=== PATIENT | male | born 1950 | race Caucasian/White ===

== ENCOUNTER 2017-12-26 07:19 | Inpatient (IN) ==
--- NOTE | 2017-12-25 22:27 | Discharge Summary ---
<Conchis Dockery E - Last Filed: 12/25/17 22:24> Date of Encounter: 12/25/17 - Discharge Diagnosis (1) Osteoarthritis of right hip Priority: Primary Status: Chronic Qualifiers: Osteoarthritis type: unspecified Qualified Code(s): M16.11 - Unilateral primary osteoarthritis, right hip (2) HTN (hypertension) Priority: Secondary Status: Chronic Qualifiers: Hypertension type: unspecified Qualified Code(s): I10 - Essential (primary ) hypertension (3) HLD (hyperlipidemia) Priority: Secondary Status: Chronic Qualifiers: Hyperlipidemia type: unspecified Qualified Code(s): E78.5 - Hyperlipidemia , unspecified (4) Obesity Priority: Secondary Status: Chronic Qualifiers: Obesity type: unspecified obesity type Obesity classification: unspecified obesity classification Serious obesity comorbidity presence: unspecified whether serious comorbidity present Qualified Code(s): E66.9 - Obesity, unspecified (5) Irritant dermatitis Priority: Secondary Status: Chronic (6) CAD (coronary artery disease) Priority: Secondary Status: Chronic Qualifiers: Coronary Disease-Associated Artery/Lesion type: unspecified vessel or lesion type [place] vs. 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 [Rx] OxyCODONE Immed Rel [Roxicodone 5 MG] 5 mg PO Q6HR PRN 7 Days #28 tablet [Rx] Aspirin [Lo-Dose Aspirin EC] 81 mg PO DAILY 12/26/17 [History] Atorvastatin Calcium [Lipitor] 20 mg PO HS 12/26/17 [History] Clopidogrel [Plavix] 75 mg PO DAILY 12/26/17 [History] Metoprolol Succinate [Toprol Xl] 25 mg PO DAILY 12/26/17 [History] Multivitamin [One Daily Essential] 1 tab PO DAILY 12/26/17 [History] Valsartan/Hydrochlorothiazide [Diovan Hct 160-12.5 mg Tab] 1 tab PO DAILY [History] Vitamin B Complex [B Complex] 1 tab PO HS 12/26/17 [History] Allergies/Adverse Reactions: 3 Allergy/AdvReac Type Severity Reaction Status Date / Time No Known Allergies Allergy Verified 12/26/17 08:10 Primary care physician: Heron Jiménez - Patient Status Disposition: Home Health Service Condition: Good - Discharge Instructions Follow Up With: Conchis Dockery PAC [Physician In Shop Service Technician] - 01/04/18 9:00 am (& also, , January 10, 2018 at 10:45 AM) Frederick Martínez MD [Partnered Physician] - 01/23/18 5:40 pm Heron Jiménez DO [Primary Care Provider] - Pebbles Rod MD [Partnered Physician] - 04/11/18 8:00 am Additional Instructions: Discharge Instructions: Total Hip Replacement Please call [facility] ([phone]), your Primary Care Physician, or report to the Emergency Room if you have any of the following symptoms: Nausea, vomiting, fever greater that 101.5, swelling, chest pain, shortness of breath, increased pain/redness/drainage/odor for your incision site, numbness/ tingling, or any other concerning symptoms. ACTIVITY:Weight-bearing as tolerated for 8 weeks with hip dislocation precautions that physical therapy taught you. You may progress as tolerated under the guidance of your physical therapist. You do not need to sleep with a pillow between your legs. You can also seep on the operative side or on your stomach. MEDICATIONS: Upon discharge resume your home medications. Take all the medications as prescribed. Take a stool softener if taking narcotic pain medications. Stool softeners are only effective if you drink enough fluids. Drink 6-8 glass of water or fluids a day, unless this is not allowed for another health problem. Despite using stool softeners, if you haven't had a bowel movement in 3 days, please switch to a gentle laxative. Gentle laxatives are sold over the counter. You should have a bowel movement within 24 hours, if not call the office. You will be discharged from the hospital with a prescription for pain medication. You are encouraged to decrease the use of narcotic pain medication as tolerated. Should you require a refill, please call the office. [facility] prescribes narcotic pain medication for only 4-6 weeks after surgery. If you require pain medication beyond this time period, you may be referred to your Primary Care Physician or to the Pain Clinic for further evaluation. Plan ahead for refills on pain medication as many narcotics either need to be picked up at the office or mailed. It is best to call 48-72 hours in advance of needing a prescription refill so you don't run out of medication. To help control the post-operative pain, you may take NSAIDs (Aleve,Advil, Motrin, ibuprofen, naprosyn) or Tylenol as prescribed on the bottle in addition to the pain medication. ANTICOAGULATION (blood thinners): Continue your Aspirin, Lovenox or Coumadin as prescribed to help prevent a blood clot in the leg or in the lungs. As long as your incision remains dry and you tolerate the NSAIDs (Aleve, Advil, Motrin, Ibuprofen, Naprosyn), it is OK to use the NSAIDS while you are taking your anticoagulation medication. Should your incision start to drain, stop the NSAID and contact our office. Common symptoms of blood clot in the legs include: localized pain, swelling, calf tenderness, redness or discoloration of the skin. Blood clot in the lung symptoms include: shortness of breath, rapid pulse, sweating, and chest pain that worsens with deep breathing, coughing up blood, lightheadedness, feelings of anxiety. If you experience any of these symptoms notify your physician immediately, go to the emergency room, or if having trouble breathing, call 911. WOUND CARE: Leave the dressing on for 7 to 10days. You may change the dressing if it is saturated greater than 50%. Do not get the dressing wet at anytime. Wash your hands with antibacterial soap, rinse and dry prior to any wound care. If you have andrew the visiting nurse or rehab facility can remove the stapes 10-14 days after surgery and place steri-strips across the wound. Leave the steri-strips in place until they fall off on their own. You may let water from the shower run on top of the steri-strips. If you do not have a visiting nurse or rehab facility, you will need to return to the office at 10-14 days for the andrew to be removed. If you have itching or redness around the dressing call the office. FOLLOW-UP: Please follow up with your surgeon in the orthopedic clinic in 6 weeks from the day of surgery. If you have andrew that need to be removed, you will need to come back to the office in 10-14 days from the day of surgery. - Hospital Course Hospital course: Mr. Larson is a 67 year old male - Time Spent with Patient Total time spent providing and/or coordinating discharge services: <Frederick Martínez - Last Filed: 12/29/17 06:43> Date of Encounter: 12/29/17 Time of Encounter: 06:42 - Discharge Diagnosis (1) Osteoarthritis of right hip Priority: Primary Status: Chronic Qualifiers: Osteoarthritis type: unspecified Qualified Code(s): M16.11 - Unilateral primary osteoarthritis, right hip (2) HTN (hypertension) Priority: Secondary Status: Chronic Qualifiers: Hypertension type: unspecified Qualified Code(s): I10 - Essential (primary ) hypertension (3) HLD (hyperlipidemia) Priority: Secondary Status: Chronic Qualifiers: Hyperlipidemia type: unspecified Qualified Code(s): E78.5 - Hyperlipidemia , unspecified (4) Irritant dermatitis Priority: Secondary Status: Chronic (5) CAD (coronary artery disease) Priority: Secondary Status: Chronic Qualifiers: Coronary Disease-Associated Artery/Lesion type: unspecified vessel or lesion type [place] vs. 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 Larson is a 67 year old male Status post total hip replacement The patient had an uneventful postoperative course. They received antibiotics and physical therapy and were discharged in stable condition. There will follow -up in the office in 2 weeks. - Time Spent with Patient Total time spent providing and/or coordinating discharge services:
[2017-12-26] MEDS ORDERED: Ethanol\\Acetic Acid\\Na Ace\\Ben 1,000 ML IRRIG.SOLN IR ONE (07:28)
[2017-12-26] MEDS ORDERED: CeFAZolin Syr 2,000MG/20 ML 2,000 MG/20 ML SYRINGE IVPB ONE (07:31)
[2017-12-26] MEDS ORDERED: Ondansetron 4 MG/2 ML VIAL ONE (07:40)
[2017-12-26] MEDS ORDERED: Lidocaine -MPF 2% 2 ML VIAL ONE (07:40)
[2017-12-26] MEDS ORDERED: *HR* Midazolam HCl 2 MG/2 ML VIAL ONE (07:40)
[2017-12-26] MEDS ORDERED: Plasma-Lyte A (PH 7.4) 1,000 ML IVC SCH (07:45)
[2017-12-26] MEDS ORDERED: *HR* Morphine Sulfate/PF 10 MG/10 ML AMPUL ONE (07:51)
--- NOTE | 2017-12-26 07:53 | History & Physical Report ---
Date of Encounter: 12/26/17 Time of Encounter: 07:52 24 Hour HP Update - Instructions Instructions: If the History and Physical is less than 30 days old and was completed prior to A.M. admission and or procedure and has NOT been updated on calendar day of procedure please complete this update prior to performing procedure. - Update Patient reports changes in Medical Condition: No Changes in examination, assessment, or condition: No Changes in Medication: No Preop tests/diagnostics Reviewed: Yes Surgery Remains Indicated: Yes Consent for Planned Operative Procedure(s) Verified: Yes - Pre-Operative Checklist Preoperative Checklist Indicated: No Prophylactic Antibiotic Ordered: Yes Is VTE Prophylaxis Indicated?: Yes
[2017-12-26] MEDS ORDERED: Famotidine 20 MG/2 ML VIAL IVP ONE (07:58)
[2017-12-26] MEDS ORDERED: Pregabalin 75 MG CAPSULE PO ONE (07:59)
--- NOTE | 2017-12-26 08:02 | Anesthesia Evaluation PreOp ---
Date of Encounter: 12/26/17 Time of Encounter: 08:00 - Past History Planned Operation: Rt THR Cardiac History: MA (2009), HTN, Hyperlipidemia, Cardiac Stent (Stent X4 on Plavix and beta gisell) Pulmonary History: Denies Any Significant HX METAL WORK DUCT INSTALLER History: Denies Any Significant HX Other Medical History: Denies Any Significant HX Anesthesia History: No Prior Anesthetic Complications Alcohol Use: occasionally Drug use: none Medications and Allergies Aspirin Enteric Coated [Aspirin EC] 325 mg PO DAILY 21 Days #21 tablet. [Rx] OxyCODONE Immed Rel [Roxicodone 5 MG] 5 mg PO Q6HR PRN 7 Days #28 tablet [Rx] 3 Allergy/AdvReac Type Severity Reaction Status Date / Time No Known Allergies Allergy Unverified 11/16/17 10:03 - Meds/Allergy Pre-op Review Medications Reviewed: Yes Allergies Reviewed: Yes Beta Blockers on Current Med List: Yes (Took Metoprolol today 0600) Anesthesia Results - Labs Laboratory Tests 12/18/17 12/18/17 12/18/17 12:44 12:44 12:44 Hgb 13.5 Hct 41.3 Plt Count 242 PT 11.6 INR 1.1 APTT 26.8 Sodium 142 Potassium 3.9 BUN 16 Creatinine 0.89 - Imaging EKG: report reviewed (SR) Anesthesia Exam O2 Sat Height 1.91 m Height 1.91 m Weight 104.78 kg Weight 104.78 kg O2 Sat by Pulse Oximetry 96 Vital Signs Temp Pulse Resp BP Pulse Ox 98.0 F 64 18 132/71 96 12/26/17 07:37 12/26/17 07:37 12/26/17 07:37 12/26/17 07:37 12/26/17 07:37 Height: 6'3 Weight: 231 lbs NPO (# of Hours): MN Pain Scale: 0 - HEENT Pupil (Motor): Pupils equal, EOMI Mallampati: II Teeth: Normal Oral Opening: Greater than 3 - METAL WORK DUCT INSTALLER LOC: Oriented METAL WORK DUCT INSTALLER Motor: Normal RUE, Normal LUE, Normal RLE, Normal LLE, Normal Face METAL WORK DUCT INSTALLER Sensory: Normal: RUE, LUE, RLE, LLE, Face - Cardiac Rhythm: Regular Murmur: None JVD: No Carotid Bruit: No - Pulmonary Breath Sounds: bilateral Clear Respiratory Effort: Symmetrical Anesthesia Assess/Plan ASA Score: 3 (CAD HTN) Modified Jeff Scale for Level of Consciousness: Cooperative, oriented, and tranquil Anesthetic Plan: General, Regional Monitoring Plan: Standard Monitors Recovery Plan: PACU (Discussed GA with Fascia Iliaca Block, agrees to proceed)
[2017-12-26] MEDS ORDERED: Bupivacaine/Clonidine Syringe 1 EACH SYRINGE ONE (08:03)
[2017-12-26] MEDS ORDERED: Lidocaine -MPF 4% 5 ML AMPUL ONE (08:10)
[2017-12-26] MEDS ORDERED: *HR* Propofol 200 MG/20 ML VIAL IVP ONE (08:10)
[2017-12-26] MEDS ORDERED: Ketamine *HR* 500 MG/10 ML MDV ONE (08:11)
[2017-12-26] MEDS ORDERED: *HR* FentaNYL (PF) 100 MCG/2 ML VIAL ONE ×2 (08:32→10:20)
[2017-12-26] MEDS ORDERED: *HR* OxyCODONE Immed Rel 5 MG TABLET PO PRN (09:15)
[2017-12-26] MEDS ORDERED: *HR* Promethazine 25 MG/ML VIAL IVP PRN (09:15)
[2017-12-26] MEDS ORDERED: Dexamethasone 4 MG/ML VIAL ONE (09:39)
--- NOTE | 2017-12-26 09:52 | Anesthesia Procedures ---
Date of Encounter: 12/26/17 Time of Encounter: 08:00 Procedures: Anesthesia - Nerve Block Procedure Date: 12/26/17 Time: 09:00 Pre-op Diagnosis: Rt Hip Osteoarthritus Surgical Procedure: RT THR Checklist: Correct Patient Identifier Correct side: Right Blood Thinner: Yes Monitor Applied: EKG, BP, Pulse Oximetry Supplemental Oxygen via Nasal Cannula (L/min): 2 Sedation: Versed (mg): 2 Sedation: Fentanyl (mcg): 100 Indication: Post Op Analgesia Pre-op Neuro Deficits: No Block Type: Other (Fascia Iliaca Block) Catheter placed: No Depth at skin (cm): 2 Sterile Technique: Yes Ultrasound used: Yes Anatomy identified: Yes Visual spread of Local: Yes Neuro Stimulation: No Nerve Stimulator Range: >0.4 - 0.6 mA Blood on Needle Aspiration: No Smooth Injection of Local: Yes Pain with Injection of Local: No Prep: Chlorhexadine Needle: 22 x 50 mm Stimuplex Local: 0.25% Bupivicaine w/Clonidine 20 mcg/cc Volume (cc): 60 Number of Attempts: 1 Complications: None/effective block Vitals: Vital Signs/O2 Sat/Glucose, Most Current Temp Pulse Resp BP Pulse Ox 12/26/17 09:20 60 18 120/80 99 12/26/17 09:05 57 16 101/64 99 12/26/17 08:51 56 18 119/77 96 12/26/17 07:37 98.0 F 64 18 132/71 96
[2017-12-26] MEDS ORDERED: EPHEDrine 50 MG/ML VIAL ONE (10:01)
--- NOTE | 2017-12-26 10:51 | Orthopedic Operative Note ---
Date of procedure: 12/26/17 Pre-op diagnosis: Right hip arthritis Post-op diagnosis: same Procedure: Procedure: Right Total Hip Replacment robotic-assisted Estimated blood loss: 200 cc Hardware: Metal and polyethylene replacement. [place] DM Cup: cup 62 Femoral size 11 stem Head: 0 head with Merna Procedural Notes: Grade 4 arthritic changes femoral head acetabular socket, procedure performed with robotic assistance. 4 mm shorter operative leg based on CAT scan Operative procedure: The patient was brought to the operating room and placed on the operating room table. After general anesthesia was administered the patient was placed in the lateral decubitus position with the operative leg up. All pressure points were padded appropriately and the head was stabilized in the neutral position. The operative extremity was prepped and draped in the sterile surgical fashion patient received IV antibiotic prior to skin incision. 3 Steinmann pins were placed in the iliac crest 3 cm proximal to the anterior superior iliac spine this was for the robotic-assisted sensor. This was done through a small 2 cm incision. A standard posterior approach is made to the operative hip, the incision was made through the skin and subcutaneous tissue hemostasis was obtained with Bovie cautery. Using careful sharp dissection the fascia was identified and incised exposing the external rotators. The femoral checkpoint was placed leg length was measured at this time utilizing robotic assistance. The external rotators were released off the greater trochanter and tagged with # 2 FiberWire suture. The capsule was T'd open and the hip was brought into internal rotation. Patient noted to have grade 4 arthritic changes femoral head. The femoral neck cut was made at the appropriate level roughly 12 mm proximal to the lesser trochanter aced on preoperative templating. An anterior capsulotomy was performed for the anterior retractor. Soft tissues removed from the acetabulum. Patient noted to have grade 4 arthritic changes acetabulum. The acetabulum checkpoint was placed confirmed. The acetabulum was then mapped with robotic assistance. Based on the preoperative plan the acetabulum was reamed in one step with a 61 reamer. The 62 acetabulum was impacted with robotic assistance and 40 degrees of abduction and 11 degrees of anteversion. The hip was brought back in to internal rotation and prepared with the box truck washer followed by the canal finder followed by the reaming process to a size 11 /12 broaching process in 20 degrees anteversion. It was broached up to the appropriate size 11. Trial reduction revealed leg lengths close to normal. The femoral implant was impacted in place in 20 degrees of anteversion. Trial reduction found the hip to be stable with 0 head and Merna. The trials were removed and the real implants were impacted in place. The hip was reduced, patient had robotic confirmed leg length of 5 mm longer than the contralateral side. The hip had excellent stability with forward flexion to 90 degrees adduction of 30 degrees and internal rotation of 60 degrees. The hip had no shuck. The hips after 2 minutes with a antibacterial solution. It was irrigated out with 2 L of pulse irrigation. The checkpoints were removed, Steinmann pins were removed. The hip was closed by the PA. The deep tissue was irrigated and closed deep with #1 PDS suture superficially with 0 PDS suture and skin was closed with Dermabond and zip tie. The patient was placed in a sterile dressing and abduction pillow. The patient was extubated and transferred to the recovery room in stable condition. Anesthesia: PAPI Surgeon: Frederick Martínez Was there an golf course assistant present: No Estimated blood loss (cc): 200 Condition: stable Disposition: PACU
[2017-12-26] MEDS ORDERED: *HR* OxyCODONE/APAP 5/325 TABLET PO PRN (10:54)
[2017-12-26] MEDS ORDERED: Naloxone 0.4 MG/ML INJ IVP PRN ×2 (10:54→12:03)
[2017-12-26] MEDS: MORPHINE SUL Oral CONC 10 MG/0.5 ML ORAL.SYG SL PRN ×2 (11:31→11:41)
[2017-12-26 11:47] LABS: Hemoglobin 11.5 g/dL (12.9-16.9)
--- NOTE | 2017-12-26 11:51 | Anesthesia Evaluation Post Op ---
Date of Encounter: 12/26/17 Time of Encounter: 12:00 - Vital Signs Vital Signs: Vital Signs/O2 Sat/Glucose, Most Current Temp Pulse Resp BP Pulse Ox 12/26/17 11:39 55 14 104/75 99 12/26/17 11:29 60 14 138/41 100 12/26/17 11:19 98.0 F 70 15 124/80 100 12/26/17 09:20 60 18 120/80 99 12/26/17 09:05 57 16 101/64 99 12/26/17 08:51 56 18 119/77 96 - Lungs Lungs: Clear Ascult./Percussion - Airway Airway: Non-obstructed - Cardiovascular Regular Rate - Mental Status Mental Status: Alert & Oriented, Answers Appropriately - Pain Pain Scale: 1 - Nausea Vomiting Nausea Vomiting: Not Present - Hydration Hydration: Ice chips - Discharge PostOp Status: Transfer Patient to floor
[2017-12-26] MEDS ORDERED: Ringers Solution, Lactated 1,000 ML ONE (11:58)
[2017-12-26] MEDS ORDERED: MOM Conc 10 ML UD.LIQ PO PRN (12:03)
[2017-12-26] MEDS ORDERED: Sennosides 8.6 MG TABLET PO PRN (12:03)
[2017-12-26] MEDS ORDERED: Temazepam 15 MG CAPSULE PO PRN (12:03)
[2017-12-26] MEDS ORDERED: Ringers Solution, Lactated 1,000 ML IVC SCH (12:03)
[2017-12-26] MEDS ORDERED: Ondansetron 4 MG/2 ML VIAL IVP PRN (12:03)
[2017-12-26] MEDS: Ascorbic Acid 500 MG TABLET PO SCH (17:06)
[2017-12-26] MEDS: CeFAZolin Premix DUPLEX 2,000 MG/50 ML BAG IVPB SCH (17:07)
[2017-12-26] MEDS: *HR* OxyCODONE/APAP 5/325 TABLET PO PRN (17:30)
[2017-12-26] MEDS ORDERED: *HR* Enoxaparin 30 MG/0.3 ML SYRINGE SQ SCH ×2 (18:00)
[2017-12-26] MEDS: Vitamin B Complex/Vit C/Vit E 1 EACH TABLET PO SCH (20:33)
[2017-12-27] MEDS: CeFAZolin Premix DUPLEX 2,000 MG/50 ML BAG IVPB SCH (00:14)
[2017-12-27 05:22] LABS: Hematocrit 31.5 % (37.5-50.1); Hemoglobin 10.4 g/dL (12.9-16.9)
[2017-12-27 06:27] LABS: BUN/Creatinine Ratio 25 (6-26); Blood Urea Nitrogen 24 mg/dL (8-23); Carbon Dioxide 28 mEq/L (23-29); Chloride 102 mEq/L (98-107); Glucose 124 mg/dL (70-105); Osmolality,Calculated 289 (280-300); Potassium 4.3 mEq/L (3.5-5.1); Sodium 137 mEq/L (136-145); eGFR For African Americans > 60 (> 60); eGFR For Non-African Americans > 60 (> 60)
--- NOTE | 2017-12-27 08:06 | Orthopedics Progress Note ---
Date of Encounter: 12/27/17 Time of Encounter: 08:06 - Assessment and Plan (1) Osteoarthritis of right hip Current Visit: No Status: Chronic Qualifiers: Osteoarthritis type: unspecified Qualified Code(s): M16.11 - Unilateral primary osteoarthritis, right hip (2) HTN (hypertension) Current Visit: No Status: Chronic Qualifiers: Hypertension type: unspecified Qualified Code(s): I10 - Essential (primary ) hypertension (3) HLD (hyperlipidemia) Current Visit: No Status: Chronic Qualifiers: Hyperlipidemia type: unspecified Qualified Code(s): E78.5 - Hyperlipidemia , unspecified (4) Irritant dermatitis Current Visit: No Status: Chronic (5) CAD (coronary artery disease) Current Visit: No Status: Chronic Qualifiers: Coronary Disease-Associated Artery/Lesion type: unspecified vessel or lesion type [place] vs. 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 Afebrile vital signs stable. Operative extremity: Neurovascularly intact Dressing clean dry and intact Calves nontender Assessment and plan: Continue with postoperative care Hematocrit 31 Objective Vital signs: Vital Signs Temp Pulse Resp BP Pulse Ox 12/27/17 07:03 98.1 F 73 14 103/59 95 12/27/17 03:51 98.1 F 68 17 110/66 99 12/27/17 00:09 98.0 F 72 17 101/55 98 12/26/17 20:10 98.1 F 70 18 91/52 98 12/26/17 15:32 97.6 F 65 15 96/62 96 12/26/17 14:56 97.7 F 60 16 89/58 96 12/26/17 14:20 97.7 F 60 16 94/58 99 12/26/17 13:32 98.6 F 55 91/65 99 12/26/17 13:22 98.6 F 55 15 91/65 99 12/26/17 12:44 97.5 F L 54 14 88/57 98 12/26/17 12:15 97.4 F L 53 15 94/62 99 12/26/17 12:01 56 14 99 12/26/17 11:49 98.2 F 54 16 101/66 99 12/26/17 11:39 55 14 104/75 99 12/26/17 11:29 60 14 138/41 100 12/26/17 11:19 98.0 F 70 15 124/80 100 12/26/17 09:20 60 18 120/80 99 12/26/17 09:05 57 16 101/64 99 12/26/17 08:51 56 18 119/77 96 Intake and Output 12/26/17 12/27/17 12/27/17 23:59 07:59 15:59 Intake Total 750 / 750 Output Total 1250 / 1250 Balance 750 / 750 -1250 / -1250 Intake: IV Fluids 50 / 50 Ancef Premix DUPLEX 2,000 mg In 50 / 50 50 ml @ 100 mls/hr IVPB Q8HR MARINO Rx#:[id number] Oral 700 / 700 Output: Straight Cath 1250 / 1250 Other: # Voids 1 Weight 113.6 kg Patient Weight 12/27/17 23:59 Weight 113.6 kg - Labs CBC & BMP: 12/27/17 04:32 12/27/17 04:32 Labs: Abnormal lab results Hgb 10.4 g/dL (12.9-16.9) L 12/27/17 04:32 Hct 31.5 % (37.5-50.1) L 12/27/17 04:32 BUN 24 mg/dL (8-23) H 12/27/17 04:32 Glucose 124 mg/dL (70-105) H 12/27/17 04:32 - VTE Documentation of Mechanical Device: Venous foot pump, device Consult Discharge Plan - Plan Referrals: Heron Jiménez DO [Primary Care Provider] -
[2017-12-27] MEDS ORDERED: NON-FORMULARY MEDICATION 1 EACH EACH (Valsartan/Hydrochlorothiazide [Diovan Hct 160-12.5 M PO SCH (09:00)
[2017-12-27] MEDS: Aspirin Enteric Coated 81 MG Tablet PO SCH (09:08)
[2017-12-27] MEDS: Ascorbic Acid 500 MG TABLET PO SCH ×2 (09:08→16:46)
[2017-12-27] MEDS: Multivit/Ca/Min/Fe/FA 1 TAB TABLET PO SCH ×2 (09:08→09:09)
[2017-12-27] MEDS: hydroCHLOROthiazide 25 MG TABLET PO SCH (09:09)
[2017-12-27] MEDS: Metoprolol XL (24 HR) Succ 25 MG TAB.ER.24H PO SCH (09:10)
[2017-12-27] MEDS: Valsartan 160 MG TABLET PO SCH (09:10)
[2017-12-27] MEDS: *HR* OxyCODONE/APAP 5/325 TABLET PO PRN ×2 (09:21→18:57)
--- NOTE | 2017-12-27 18:36 | Event Note ---
Date of Encounter: 12/27/17 Time of Encounter: 13:30 PCR- POD#1 R THR robotic 12/26/17 Mauricio PCR - Patient in restroom - had accident. Patient not seen during rounds. Nursing and RELAST[facility] staff notified of patient's need for help.
[2017-12-27] MEDS: Vitamin B Complex/Vit C/Vit E 1 EACH TABLET PO SCH (20:02)
[2017-12-28] MEDS: *HR* OxyCODONE/APAP 5/325 TABLET PO PRN (00:39)
[2017-12-28 03:54] LABS: Hematocrit 26.6 % (37.5-50.1)
[2017-12-28 04:20] LABS: BUN/Creatinine Ratio 28 (6-26); Blood Urea Nitrogen 24 mg/dL (8-23); Calcium 8.9 mg/dL (8.6-10.3); Carbon Dioxide 29 mEq/L (23-29); Chloride 101 mEq/L (98-107); Glucose 120 mg/dL (70-105); Osmolality,Calculated 287 (280-300); Potassium 4.1 mEq/L (3.5-5.1); Sodium 136 mEq/L (136-145); eGFR For African Americans > 60 (> 60); eGFR For Non-African Americans > 60 (> 60)
[2017-12-28] MEDS ORDERED: *HR* OxyCODONE Immed Rel 5 MG TABLET PO PRN (06:40)
[2017-12-28] MEDS: Valsartan 160 MG TABLET PO SCH (07:27)
[2017-12-28] MEDS: *HR* OxyCODONE Immed Rel 5 MG TABLET PO PRN ×4 (07:28→20:03)
[2017-12-28] MEDS: hydroCHLOROthiazide 25 MG TABLET PO SCH (07:28)
[2017-12-28] MEDS: Aspirin Enteric Coated 81 MG Tablet PO SCH (07:28)
[2017-12-28] MEDS: Metoprolol XL (24 HR) Succ 25 MG TAB.ER.24H PO SCH (07:28)
[2017-12-28] MEDS: Ascorbic Acid 500 MG TABLET PO SCH ×2 (07:29→15:49)
[2017-12-28] MEDS: Multivit/Ca/Min/Fe/FA 1 TAB TABLET PO SCH ×2 (07:29)
--- NOTE | 2017-12-28 08:01 | Orthopedics Progress Note ---
Date of Encounter: 12/28/17 Time of Encounter: 08:00 - Assessment and Plan (1) Osteoarthritis of right hip Current Visit: No Status: Chronic Qualifiers: Osteoarthritis type: unspecified Qualified Code(s): M16.11 - Unilateral primary osteoarthritis, right hip (2) HTN (hypertension) Current Visit: No Status: Chronic Qualifiers: Hypertension type: unspecified Qualified Code(s): I10 - Essential (primary ) hypertension (3) HLD (hyperlipidemia) Current Visit: No Status: Chronic Qualifiers: Hyperlipidemia type: unspecified Qualified Code(s): E78.5 - Hyperlipidemia , unspecified (4) Irritant dermatitis Current Visit: No Status: Chronic (5) CAD (coronary artery disease) Current Visit: No Status: Chronic Qualifiers: Coronary Disease-Associated Artery/Lesion type: unspecified vessel or lesion type [place] vs. 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 Afebrile vital signs stable. Operative extremity: Neurovascularly intact Dressing clean dry and intact Calves nontender Assessment and plan: Continue with postoperative care hb 9.0 Objective Vital signs: Vital Signs Temp Pulse Resp BP Pulse Ox 12/28/17 07:05 98.9 F 82 16 106/67 95 12/28/17 00:10 98.6 F 80 14 119/75 93 12/27/17 18:50 99.3 F 86 16 106/65 93 12/27/17 17:05 98.3 F 85 14 110/58 96 12/27/17 11:30 98.8 F 71 15 111/65 94 Intake and Output 12/27/17 12/28/17 12/28/17 23:59 07:59 15:59 Intake Total 290 / 290 Output Total 250 / 250 Balance 290 / 290 -250 / -250 Intake: Oral 290 / 290 Output: Urine 250 / 250 Other: Meal Dinner Percent of Meal Consumed 70% - Labs CBC & BMP: 12/28/17 02:43 02/16/18 02:43 Labs: Abnormal lab results Hgb 9.0 g/dL (12.9-16.9) L 12/28/17 02:43 Hct 26.6 % (37.5-50.1) L 12/28/17 02:43 BUN 24 mg/dL (8-23) H 12/28/17 02:43 BUN/Creatinine Ratio 28 (6-26) H 12/28/17 02:43 Glucose 120 mg/dL (70-105) H 12/28/17 02:43 - VTE Documentation of Mechanical Device: Venous foot pump, device Consult Discharge Plan - Plan Referrals: Conchis Dockery PAC [Physician Professional Fighter] - 01/04/18 9:00 am (& also, January at 10:45 AM) Frederick Martínez MD [Partnered Physician] - 01/23/18 5:40 pm Heron Jiménez DO [Primary Care Provider] - Pebbles Rod MD [Partnered Physician] - 04/11/18 8:00 am
--- NOTE | 2017-12-28 16:57 | Event Note ---
Date of Encounter: 12/28/17 Time of Encounter: 12:15 PCR- POD#2 R THR robotic 12/26/17 Mauricio PCR - Patient seen at bedside. Pain control: adequate Participating in PT. All questions and concerns addressed. Educated on use of incentive spirometer, ambulation, and hydration. Patient educated on post-operative restrictions and care. Addressed: see above. D/C plan: home tomorrow with outpatient therapy
[2017-12-28] MEDS: Vitamin B Complex/Vit C/Vit E 1 EACH TABLET PO SCH (20:03)
[2017-12-29] MEDS: *HR* OxyCODONE Immed Rel 5 MG TABLET PO PRN ×3 (01:52→11:40)
--- NOTE | 2017-12-29 06:43 | Orthopedics Progress Note ---
Date of Encounter: 12/29/17 Time of Encounter: 06:43 - Assessment and Plan (1) Osteoarthritis of right hip Current Visit: No Status: Chronic Qualifiers: Osteoarthritis type: unspecified Qualified Code(s): M16.11 - Unilateral primary osteoarthritis, right hip (2) HTN (hypertension) Current Visit: No Status: Chronic Qualifiers: Hypertension type: unspecified Qualified Code(s): I10 - Essential (primary ) hypertension (3) HLD (hyperlipidemia) Current Visit: No Status: Chronic Qualifiers: Hyperlipidemia type: unspecified Qualified Code(s): E78.5 - Hyperlipidemia , unspecified (4) Irritant dermatitis Current Visit: No Status: Chronic (5) CAD (coronary artery disease) Current Visit: No Status: Chronic Qualifiers: Coronary Disease-Associated Artery/Lesion type: unspecified vessel or lesion type [place] vs. 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 Afebrile vital signs stable. Operative extremity: Neurovascularly intact Dressing clean dry and intact Calves nontender Assessment and plan: Continue with postoperative care Discharged today Objective Vital signs: Vital Signs Temp Pulse Resp BP Pulse Ox 12/29/17 04:26 99.2 F 79 15 123/75 97 12/29/17 00:35 98.9 F 78 15 98/60 92 12/28/17 20:48 97.7 F 79 17 118/72 16 12/28/17 20:00 92 12/28/17 16:18 99.7 F H 85 16 107/66 92 12/28/17 11:22 99.0 F 85 16 130/80 99 12/28/17 07:05 98.9 F 82 16 106/67 95 Intake and Output 12/28/17 12/28/17 12/29/17 15:59 23:59 07:59 Intake Total 300 / 300 Output Total 500 / 500 Balance -200 / -200 Intake: Oral 300 / 300 Output: Urine 500 / 500 Other: # Voids 1 - Labs CBC & BMP: 12/28/17 02:43 12/28/17 02:43 Labs: Abnormal lab results Hgb 9.0 g/dL (12.9-16.9) L 12/28/17 02:43 Hct 26.6 % (37.5-50.1) L 12/28/17 02:43 BUN 24 mg/dL (8-23) H 12/28/17 02:43 BUN/Creatinine Ratio 28 (6-26) H 12/28/17 02:43 Glucose 120 mg/dL (70-105) H 12/28/17 02:43 - VTE Documentation of Mechanical Device: Venous foot pump, device Consult Discharge Plan - Plan Additional Instructions: Discharge Instructions: Total Hip Replacement Please call [facility] ([phone]), your Primary Care Physician, or report to the Emergency Room if you have any of the following symptoms: Nausea, vomiting, fever greater that 101.5, swelling, chest pain, shortness of breath, increased pain/redness/drainage/odor for your incision site, numbness/ tingling, or any other concerning symptoms. ACTIVITY:Weight-bearing as tolerated for 8 weeks with hip dislocation precautions that physical therapy taught you. You may progress as tolerated under the guidance of your physical therapist. You do not need to sleep with a pillow between your legs. You can also seep on the operative side or on your stomach. MEDICATIONS: Upon discharge resume your home medications. Take all the medications as prescribed. Take a stool softener if taking narcotic pain medications. Stool softeners are only effective if you drink enough fluids. Drink 6-8 glass of water or fluids a day, unless this is not allowed for another health problem. Despite using stool softeners, if you haven't had a bowel movement in 3 days, please switch to a gentle laxative. Gentle laxatives are sold over the counter. You should have a bowel movement within 24 hours, if not call the office. You will be discharged from the hospital with a prescription for pain medication. You are encouraged to decrease the use of narcotic pain medication as tolerated. Should you require a refill, please call the office. [facility] prescribes narcotic pain medication for only 4-6 weeks after surgery. If you require pain medication beyond this time period, you may be referred to your Primary Care Physician or to the Pain Clinic for further evaluation. Plan ahead for refills on pain medication as many narcotics either need to be picked up at the office or mailed. It is best to call 48-72 hours in advance of needing a prescription refill so you don't run out of medication. To help control the post-operative pain, you may take NSAIDs (Aleve,Advil, Motrin, ibuprofen, naprosyn) or Tylenol as prescribed on the bottle in addition to the pain medication. ANTICOAGULATION (blood thinners): Continue your Aspirin, Lovenox or Coumadin as prescribed to help prevent a blood clot in the leg or in the lungs. As long as your incision remains dry and you tolerate the NSAIDs (Aleve, Advil, Motrin, Ibuprofen, Naprosyn), it is OK to use the NSAIDS while you are taking your anticoagulation medication. Should your incision start to drain, stop the NSAID and contact our office. Common symptoms of blood clot in the legs include: localized pain, swelling, calf tenderness, redness or discoloration of the skin. Blood clot in the lung symptoms include: shortness of breath, rapid pulse, sweating, and chest pain that worsens with deep breathing, coughing up blood, lightheadedness, feelings of anxiety. If you experience any of these symptoms notify your physician immediately, go to the emergency room, or if having trouble breathing, call 911. WOUND CARE: Leave the dressing on for 7 to 10days. You may change the dressing if it is saturated greater than 50%. Do not get the dressing wet at anytime. Wash your hands with antibacterial soap, rinse and dry prior to any wound care. If you have andrew the visiting nurse or rehab facility can remove the stapes 10-14 days after surgery and place steri-strips across the wound. Leave the steri-strips in place until they fall off on their own. You may let water from the shower run on top of the steri-strips. If you do not have a visiting nurse or rehab facility, you will need to return to the office at 10-14 days for the andrew to be removed. If you have itching or redness around the dressing call the office. FOLLOW-UP: Please follow up with your surgeon in the orthopedic clinic in 6 weeks from the day of surgery. If you have andrew that need to be removed, you will need to come back to the office in 10-14 days from the day of surgery. Referrals: Conchis Dockery PAC [Physician Nutrition Services Manager] - 01/04/18 9:00 am (& also, , January 10, 2018 at 10:45 AM) Frederick Martínez MD [Partnered Physician] - 01/23/18 5:40 pm Heron Jiménez DO [Primary Care Provider] - Pebbles Rod MD [Partnered Physician] - 04/11/18 8:00 am
[2017-12-29 07:09] VITALS: BP 127/71
[2017-12-29] MEDS: Metoprolol XL (24 HR) Succ 25 MG TAB.ER.24H PO SCH (07:26)
[2017-12-29] MEDS: Valsartan 160 MG TABLET PO SCH (07:26)
[2017-12-29] MEDS: Aspirin Enteric Coated 81 MG Tablet PO SCH (07:27)
[2017-12-29] MEDS: Multivit/Ca/Min/Fe/FA 1 TAB TABLET PO SCH ×2 (07:27→07:28)
[2017-12-29] MEDS: hydroCHLOROthiazide 25 MG TABLET PO SCH (07:27)
[2017-12-29] MEDS: Ascorbic Acid 500 MG TABLET PO SCH (07:27)
== END 2017-12-29 11:55 | disposition home health service (06) | DRG 470 ==
LOC: SAMDAY 07:19 → 3NENU 13:04
PROVIDERS: ADMIT Orthopaedic Surgery; ATTEND Orthopaedic Surgery